=== PATIENT | male | born 1950 | race Caucasian/White ===

== ENCOUNTER → 2016-09-16 | Outpatient (CLI) | payer MEDICARE, OTHER ==
[~2016-09-16] MED LIST: ASPERDRINK81 MG; ASPIR-LOW81 MG PO; FISH OIL CONC1 EACH PO; INDERAL60 MG PO; INNOPRAN XL120 MG PO; QUERCETIN PO; SELENIUM200 MC3 PO; VITAMIN C1000 MG PO; VITAMIN D1000 INTUN PO; VITAMIN E400 UNIT PO; ZINC50 M1 PO; [UNRECOGNIZED DRUG - CODE] PO
== END | disposition home or self-care (01) ==
LOC: CDC 11:21
DX: Z01.810 Encounter for preprocedural cardiovascular examination (principal); S83.231A Complex tear of medial meniscus, current injury, right knee, initial encounter; M17.11 Unilateral primary osteoarthritis, right knee; M25.561 Pain in right knee; Z88.8 Allergy status to other drugs, medicaments and biological substances
CPT/HCPCS: 93000